=== PATIENT | female | born 1985 | race Caucasian/White ===

== ENCOUNTER 2018-09-25 06:28 | Inpatient (IN) ==
[2018-09-25] MEDS ORDERED: Aluminum/Magnesium/Simethacone Susp 30 ML UDC PO PRN (13:15)
[2018-09-25] MEDS ORDERED: Acetaminophen 325 MG Tablet PO PRN (13:15)
[2018-09-25] MEDS: Topiramate 100 MG Tablet PO SCH (21:10)
[2018-09-25] MEDS: OXcarbazepine 600 MG Tablet PO SCH (21:10)
[2018-09-25 23:26] VITALS: RESP 16
[2018-09-26] MEDS: OXcarbazepine 600 MG Tablet PO SCH (09:02)
[2018-09-26] MEDS: Topiramate 100 MG Tablet PO SCH ×2 (09:02→21:23)
[2018-09-26 11:10] LABS: Calcium 8.5 mg/dL (8.5-10.1); Potassium 3.7 meq/L (3.5-5.1)
[2018-09-26 11:13] LABS: Chol/HDL Ratio 3.03 Ratio; HDL Cholesterol 42.8 mg/dL (40.0-60.0)
--- NOTE | 2018-09-26 12:29 | P.HPPSY ---
Provisional Diagnosis Admission Date: September 25, 2018 09:45 Competence Certification of Person's Competence To Provide Express and Informed Consent I have personally examined Nicolle Solis, a person being served at [facility] on, September 26, 2018 1221. Express and informed consent means consent voluntarily given in writing, by a competent person, after sufficient explanation and disclosure of the subject matter involved to enable the person to make a knowing and willful decision without any element of force, fraud, deceit, duress, or other form of constraint or coercion. This person is 18 years of age or older, is not now known to be incompetent to consent to treatment with a guardian advocate, and does not have a health care surrogate or proxy currently making medical treatment decisions. I have found this person to be one of the following: [X] Competent to provide express and informed consent, as defined above, for voluntary admission to this facility and is competent to provide express and informed consent for treatment. He/she has the consistent capacity to make well reasoned, willful, and knowing decisions concerning his or her medical or mental health treatment. The person fully and consistently understands the purpose of the admission for examination/placement and is fully capable of personally exercising all rights assured under [place] Incompetent to provide express and informed consent to voluntary admission, and this is incompetent to provide express and informed consent to treatment. The person must be transferred to involuntary status and a petition for a guardian advocate filed with the Circuit Court. [] Refusing to provide express and informed consent to voluntary admission but is competent to provide express and informed consent for treatment. The person must be discharged or transferred to involuntary status. Form shall be completed within 24 hours of a person's arrival at the receiving facility and filed in the clinical record of each person: 1. Admitted on a voluntary basis 2. Permitted to provide express and informed consent to his/her own treatment 3. Allowed to transfer from involuntary to voluntary status 4. Prior to permitting a person to consent to his or her own treatment after having been previously found incompetent to consent to treatment. 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 Per nursing patient also had chest pain and she was medically cleared before being sent here. She is not complaining of any chest pain at this time. Patient is pleasant but is hesitant with a delayed thought process taking a long time to answer any questions. She was also overheard telling another patient by staff that being Jeffrey acted at the hospital will help her get disability. Per nursing patient got into an argument with the roommate. Patient becomes angry and denies this course of events and said she is here because she is too poor to by her daughter a Joel present. Mood has been depressed. Patient says she denies suicidal ideation intent or plan. Per Jeffrey act she had thoughts of cutting which she denies today. No signs of maru. She denies psychotic symptoms. Denies recent substance use Past psych: Patient says she is from [place] and goes to a mental health clinic [facility] are [facility]. She says her current medications are Zoloft 50 mg daily and trazodone 50 mg p.o. nightly. The pharmacy that she mentions to verify her doses is closed today. She is had 4 other inpatient admissions. One actual suicide attempt "a long time ago." Past medical: Patient has seizure disorder and says that her medications are Trileptal 900 mg in the morning and 1200 mg at night and Topamax 100 mg twice a day Past Famhx: Unsure Past Social: Patient was born in [place] and lives in [place]. Mother has legal custody of her only daughter. She is not . She lives with her roommates and is unemployed. She is on Medicaid and his food stamps. She does have a history of employment [employer] for 7 years in [place]. She denies any drug or alcohol use. She says she was in special education when she was little. Got all the way to the 11th grade. - Inpatient Certification I certify that the inpatient services were ordered in accordance with Medicare regulations governing the order. This includes certification that hospital inpatient services are reasonable and necessary and in the case of services not specified as inpatient-only under 42 CFR 419.22(n), that they are appropriately provided as inpatient services in accordance to with the 2-midnight benchmark under 43 CFR 412.3(e) I certify that inpatient psychiatric hospital services are medically necessary. Evaluation and treatment and/or diagnostic testing are expected to improve the patient's condition. The patient needs on a daily basis, active treatment furnished directly by or requiring the supervision of inpatient psychiatric facility personnel. PMFSH - History History Provided By: Patient - Tobacco History Second Hand Smoke Exposure: No Smoking Status: Never smoker - Alcohol History How Often Do You Have a Drink Containing Alcohol: Never - Substance Use History Substance History: No History of Abuse - Travel History Recent Travel in the USA Within the Last 8 Weeks: No Recent Travel Out of the Country Within the Last 8 Weeks: No - Immunization History Tetanus Immunization: >5 Years Hx Influenza Vaccine This Season: No Medications and Allergies Active Medications: Active Medications Acetaminophen (Tylenol) 650 mg PO Q4H PRN PRN Reason: Pain 1-5 or Temp >101F Al Hydrox/Mg Hydrox/Simethicone (Mag-Al Plus Susp Liq) 30 ml PO Q6H PRN PRN Reason: DYSPEPSIA Al Hydroxide/Mg Hydroxide (Milk Of Magnesia Liq) 30 ml PO DAILY PRN PRN Reason: CONSTIPATION Lorazepam (Ativan Inj) 2 mg IM Q15M PRN PRN Reason: SEIZURE DISORDER Oxcarbazepine (Trileptal) 600 mg PO BID [facility] Last Admin: 09/26/18 09:02 Dose: 600 mg Topiramate (Topamax) 100 mg PO BID [facility] Last Admin: 09/26/18 09:02 Dose: 100 mg Allergies Allergy/AdvReac Type Severity Reaction Status Date / Time No Known Allergies Allergy Verified 09/25/18 11:50 Results - Labs CBC & Chem 7: 09/26/18 09:27 Labs: Laboratory Results - last 24 hr 09/26/18 09:27 Sodium 141 Potassium 3.7 Chloride 109 H Carbon Dioxide 26.0 Anion Gap 6 BUN 13 Creatinine 0.74 Estimated GFR 89 Random Glucose 74 Calcium 8.5 Triglycerides 155 H Cholesterol 130 LDL Cholesterol, Calc 56 HDL Cholesterol 42.8 Cholesterol/HDL Ratio 3.03 Exam Vital signs: Vital Signs 09/25/18 23:24 09/26/18 06:00 Temperature 97.9 F 97.4 F L Pulse Rate 72 53 L Respiratory Rate 16 16 Blood Pressure 104/67 Pulse Oximetry 94 L Intake & Output 09/25/18 09/26/18 09/26/18 18:59 06:59 18:59 Weight 90.9 kg Other: Weight On Admission 90.9 kg Mental Status Examination Appearance: Disheveled Consciousness: Alert Orientation: x4 Motor Activity: Normal gait Speech: Hesitant, Slow Language: Adequate Fund of Knowledge: Inadequate Attention and Concentration: Adequate Memory: Impaired Mood: Sad Affect: Sad, Blunt Thought Process & Associations: Circumstantial Thought Content: Appropriate Hallucination Type: None Delusion Type: None Suicidal Ideation: No Suicidal Plan: No Suicidal Intention: No Homicidal Ideation: No Homicidal Plan: No Homicidal Intention: No Insight: Poor Judgment: Poor Assessment and Plan - Assessment (1) Major depressive disorder, recurrent, moderate Code(s): F33.1 - Major depressive disorder, recurrent, moderate Status: Acute (2) Seizure Code(s): R56.9 - Unspecified convulsions Status: Acute - Plan Plan: Patient may sign voluntary. We will increase Zoloft to 100 mg daily. Continue trazodone 50 mg nightly. We will continue her medications at current dosing and I suggest the provider tomorrow called the pharmacy to verify that dosing including her seizure medications. The dosing of the seizure medications were checked and are within range. Justification for Continued Inpatient Stay: Patient would decompensate in a less restrictive setting
[2018-09-26] MEDS: Sertraline 100 MG Tablet PO SCH (13:54)
[2018-09-26 14:19] LABS: Hemoglobin A1c 5.3 % (4.3-6.0)
--- NOTE | 2018-09-26 16:42 | P.CON ---
History of Present Illness Service: Hospitalist Consult date: 09/26/18 Requesting Physician: Ruddy Quiñones Reason for Consult: Assist with medical management Primary Care Provider: UNKNOWN History of Present Illness: This is a 33-year-old Jamaican female with past medical history significant for borderline intellectual function with hx of SPIKE MACHINE FEEDER shunt placement, seizure disorder, depression and anxiety admitted for suicidal ideation voluntarily to inpatient psychiatric unit. Hospitalist services have been consulted to assist with medical management. Patient states that her seizure disorder is well controlled on her current medication regimen and she has not had a seizure in many many years. She is complaining of a itchy rash on the right foot and ankle for the past few weeks. She denies any fever or chills. She denies any dizziness, lightheadedness or vision changes. Patient states she does have intermittent chest pain when she is fighting with her mother but denies any active chest pain at this time. She denies any ongoing chest pain or shortness of breath. She denies any nausea, vomiting or abdominal pain. She denies any bowel or bladder difficulties. Review of Systems All other systems reviewed negative except as stated in HPI PMFSH - History History Provided By: Patient - Medical History Medical History: Medical History (Last Updated 09/26/18 @ 16:32 by Marjan Haley) Anxiety Depression Intellectual disability Seizure disorder - Surgical History Surgical History: Surgical History (Last Updated 09/26/18 @ 16:32 by Marjan Haley) History of S/P SPIKE MACHINE FEEDER shunt - Family History Family History: Family History (Last Updated 09/26/18 @ 16:33 by Marjan Haley) Father Hypertension - Social History I have reviewed the patient's Social History: Yes - Tobacco History Second Hand Smoke Exposure: No Smoking Status: Never smoker - Alcohol History How Often Do You Have a Drink Containing Alcohol: Never - Substance Use History Substance History: No History of Abuse - Travel History Recent Travel in the USA Within the Last 8 Weeks: No Recent Travel Out of the Country Within the Last 8 Weeks: No - Immunization History Tetanus Immunization: >5 Years Hx Influenza Vaccine This Season: No Medications and Allergies Active Medications: Active Medications Acetaminophen (Tylenol) 650 mg PO Q4H PRN PRN Reason: Pain 1-5 or Temp >101F Al Hydrox/Mg Hydrox/Simethicone (Mag-Al Plus Susp Liq) 30 ml PO Q6H PRN PRN Reason: DYSPEPSIA Al Hydroxide/Mg Hydroxide (Milk Of Nazario Berrios) 30 ml PO DAILY PRN PRN Reason: CONSTIPATION Lorazepam (Ativan Inj) 2 mg IM Q15M PRN PRN Reason: SEIZURE DISORDER Oxcarbazepine (Trileptal) 900 mg PO DAILY [facility] Oxcarbazepine (Trileptal) 1,200 mg PO HS [facility] Sertraline HCl (Zoloft) 100 mg PO DAILY [facility] Last Admin: 09/26/18 13:54 Dose: 100 mg Topiramate (Topamax) 100 mg PO BID [facility] Last Admin: 09/26/18 09:02 Dose: 100 mg Trazodone HCl (Desyrel) 50 mg PO HS [facility] Allergies Allergy/AdvReac Type Severity Reaction Status Date / Time No Known Allergies Allergy Verified 09/25/18 11:50 Physical Exam Vital signs: Vital Signs 09/25/18 23:24 09/26/18 06:00 Temperature 97.9 F 97.4 F L Pulse Rate 72 53 L Respiratory Rate 16 16 Blood Pressure 104/67 Pulse Oximetry 94 L Intake & Output 09/25/18 09/26/18 09/26/18 18:59 06:59 18:59 Weight 90.9 kg Other: Weight On Admission 90.9 kg Narrative: GENERAL: This is a well-developed well-nourished overweight Jamaican female patient, in no acute distress. Awake and alert. SKIN: Warm and dry. + Fungal appearing rash on the right foot and ankle HEAD: Atraumatic. Normocephalic. EYES: Pupils equal and round. No scleral icterus. No injection or drainage. ENT: No nasal bleeding or discharge. Mucous membranes pink and moist. NECK: Trachea midline. CARDIOVASCULAR: Regular rate and rhythm. RESPIRATORY: No accessory muscle use. Clear to auscultation. Breath sounds equal bilaterally. GASTROINTESTINAL: Abdomen soft, non-tender, nondistended. No organomegaly. Bowel sounds positive. MUSCULOSKELETAL: Extremities without clubbing, cyanosis, or edema. No obvious deformities. NEUROLOGICAL: Awake and alert. No obvious cranial nerve deficits. Motor grossly within normal limits. Able to move all extremities spontaneously. Normal speech. PSYCHIATRIC: Calm and cooperative. Results - Labs CBC & Chem 7: 09/26/18 09:27 Labs: Laboratory Results - last 24 hr 09/26/18 09/26/18 09:27 09:27 Sodium 141 Potassium 3.7 Chloride 109 H Carbon Dioxide 26.0 Anion Gap 6 BUN 13 Creatinine 0.74 Estimated GFR 89 Random Glucose 74 Hemoglobin A1c 5.3 Calcium 8.5 Triglycerides 155 H Cholesterol 130 LDL Cholesterol, Calc 56 HDL Cholesterol 42.8 Cholesterol/HDL Ratio 3.03 Assessment and Plan - Plan 33-year-old Jamaican female with past medical history significant for borderline intellectual function with hx of SPIKE MACHINE FEEDER shunt placement, seizure disorder , depression and anxiety admitted for suicidal ideation voluntarily to inpatient psychiatric unit. Hospitalist services have been consulted to assist with medical management. Depression Anxiety Suicidal ideation -Management per psychiatric team Seizure disorder Patient denies any history of seizure activity in many years -Resume patient on home antiseizure medications Trileptal and Topamax -Seizure precautions Tinea pedis, right foot -Clotrimazole BID -monitor DVT prophylaxis -Patient is ambulatory Thank you very kindly for this consultation. We will continue to follow patient along with you. Discussed Condition With: patient, nursing staff
[2018-09-26] MEDS ORDERED: OXcarbazepine 600 MG Tablet PO SCH (21:00)
[2018-09-26] MEDS: Clotrimazole 1% Cream 15 GM Tube TOPICAL SCH (21:23)
[2018-09-26] MEDS: traZODone 50 MG Tablet PO SCH (21:23)
[2018-09-27] MEDS: Topiramate 100 MG Tablet PO SCH ×2 (09:15→20:17)
[2018-09-27] MEDS: Clotrimazole 1% Cream 15 GM Tube TOPICAL SCH ×2 (09:15→20:17)
[2018-09-27] MEDS: Sertraline 100 MG Tablet PO SCH (09:15)
--- NOTE | 2018-09-27 10:55 | P.PNPSY ---
Subjective Chief Complaint: SI Remarks: Nursing reports the patient has been calm and cooperative and appropriate within the milieu. Patient was observed during rec therapy to be somewhat isolated and quiet. Patient reports that she is confused and anxious about being at [facility] because she normally gets admitted to [facility]. Patient reports that her problems are due to a lack of support from her family and the lack of transportation. She is frustrated that she is unable to complete her GED and thereby get steady work. She last worked 8 years ago for [employer] in [place]. She reports that she lives for her 8-year-old daughter and a new boyfriend. Breast concerned that every time she has a new boyfriend her sister tells the boyfriend that he will be arrested because she is "mentally retarded". The patient denies any suicidal or homicidal ideations she denied any depressed mood but did endorse worries about the uncertainty of her future. She would like to be discharged back to [facility] for outpatient care and hopes that she can get more support transportation needs. Her Zoloft was increased from 50 mg 100 mg and she has thus far tolerated and she believes that it has helped her mood. Review of Systems Constitutional: Denies daytime sleepiness, Denies lack of energy Eyes: Denies change in vision Psychiatric: Reports anxiety, Denies hearing things others do not hear, Denies hopelessness, Denies seeing things others do not see, Denies thoughts of hurting /killing others, Denies thoughts of hurting/killing yourself Mental Status Examination Appearance: Disheveled Consciousness: Alert Orientation: x4 Motor Activity: Normal gait Speech: Unremarkable Language: Adequate Fund of Knowledge: Adequate Attention and Concentration: Adequate Memory: Unremarkable Mood: Anxious Affect: Appropriate Thought Process & Associations: Circumstantial Thought Content: Appropriate Hallucination Type: None Delusion Type: None Suicidal Ideation: No Suicidal Plan: No Suicidal Intention: No Homicidal Ideation: No Homicidal Plan: No Homicidal Intention: No Insight: Fair Judgment: Adequate (As evidenced by her reliable help seeking behaviors) Assessment and Plan - Assessment (1) Major depressive disorder, recurrent, moderate Code(s): F33.1 - Major depressive disorder, recurrent, moderate Status: Acute (2) Seizure Code(s): R56.9 - Unspecified convulsions Status: Acute - Plan Plan: Initial treatment plan: Patient may sign voluntary. We will increase Zoloft to 100 mg daily. Continue trazodone 50 mg nightly. We will continue her medications at current dosing and I suggest the provider tomorrow called the pharmacy to verify that dosing including her seizure medications. The dosing of the seizure medications were checked and are within range. September 27, 2018: Patient has had a good response to treatment as evidenced by her improved affect and reported remission of depressed mood. She is appropriately anxious about the uncertainty of her work status and her inability to find help with transportation. She indicates a willingness to follow up with [facility] which is her normal outpatient mental health provider. She has tolerated the change in dosing of her antidepressant and is she is satisfied with treatment. Plan: Continue current meds and inpatient treatment plan. Anticipate discharge home tomorrow with follow-up with [facility]. Justification for Continued Inpatient Stay: Patient remains an elevated risk of self-harm due to recurrent depression with a history of chronic seizures and only recently had an increase of her dosing and antidepressant. Request Healthcare Surrogate/Guardian Advocate?: No
[2018-09-27] MEDS: OXcarbazepine 600 MG Tablet PO SCH ×2 (11:05→20:17)
[2018-09-27] MEDS: traZODone 50 MG Tablet PO SCH (20:17)
[2018-09-28 05:45] VITALS: BP 108/65; PULSE 71; TEMP 98; O2SAT 99
[2018-09-28] MEDS ORDERED: OXcarbazepine 600 MG Tablet PO SCH (09:00)
[2018-09-28] MEDS: Topiramate 100 MG Tablet PO SCH (09:08)
[2018-09-28] MEDS: Sertraline 100 MG Tablet PO SCH (09:08)
[2018-09-28] MEDS: OXcarbazepine 600 MG Tablet PO SCH (09:08)
[2018-09-28] MEDS: Clotrimazole 1% Cream 15 GM Tube TOPICAL SCH (09:09)
--- NOTE | 2018-09-28 10:52 | P.DSPSY ---
Psychiatry Discharge Summary Inpatient Psychiatric care?: Yes Advance Directives: No Reason for Unknown:: Other Mental Health Advance Directive: No Health Care Proxy: No - Admission Admission Date: September 25, 2018 09:45 - Admission Diagnosis (1) Major depressive disorder, recurrent, moderate Code(s): F33.1 - Major depressive disorder, recurrent, moderate (2) Seizure Code(s): R56.9 - Unspecified convulsions Brief History: Patient is a 33-year-old [place] female with borderline intellectual functioning here for suicidal ideation. Per nursing patient also had chest pain and she was medically cleared before being sent here. She is not complaining of any chest pain at this time. Patient is pleasant but is hesitant with a delayed thought process taking a long time to answer any questions. She was also overheard telling another patient by staff that being Jeffrey acted at the hospital will help her get disability. Per nursing patient got into an argument with the roommate. Patient becomes angry and denies this course of events and said she is here because she is too poor to by her daughter a Vernon present. Mood has been depressed. Patient says she denies suicidal ideation intent or plan. Per Jeffrey act she had thoughts of cutting which she denies today. No signs of maru. She denies psychotic symptoms. Denies recent substance use Past psych: Patient says she is from [place] and goes to a mental health clinic they are called [facility]. She says her current medications are Zoloft 50 mg daily and trazodone 50 mg p.o. nightly. The pharmacy that she mentions to verify her doses is closed today. She is had 4 other inpatient admissions. One actual suicide attempt "a long time ago." Past medical: Patient has seizure disorder and says that her medications are Trileptal 900 mg in the morning and 1200 mg at night and Topamax 100 mg twice a day Past Famhx: Unsure Past Social: Patient was born in [place] and lives in [place]. Mother has legal custody of her only daughter. She is not . She lives with her roommates and is unemployed. She is on Medicaid and his food stamps. She does have a history of employment [employer] for 7 years in [place]. She denies any drug or alcohol use. She says she was in special education when she was little. Got all the way to the 11th grade. Tobacco Use In Past 30 Days: No How Often Do You Have a Drink Containing Alcohol: Never Hospital Course: Initial treatment plan: Patient may sign voluntary. We will increase Zoloft to 100 mg daily. Continue trazodone 50 mg nightly. We will continue her medications at current dosing and I suggest the provider tomorrow called the pharmacy to verify that dosing including her seizure medications. The dosing of the seizure medications were checked and are within range. September 27, 2018: Patient has had a good response to treatment as evidenced by her improved affect and reported remission of depressed mood. She is appropriately anxious about the uncertainty of her work status and her inability to find help with transportation. She indicates a willingness to follow up with [facility] which is her normal outpatient mental health provider. She has tolerated the change in dosing of her antidepressant and is she is satisfied with treatment. Plan: Continue current meds and inpatient treatment plan. Anticipate discharge home tomorrow with follow-up with [facility]. September 28, 2018: The patient was interviewed in the privacy of their room and accompanied by the assigned nurse. We reviewed the patient's mood, thoughts, and behaviors from overnight and this morning. The patient continues to deny depressed mood or anxiety. She denies suicidal ideations or thoughts of harming others. She expressed sincere motivation to return to her outpatient care with [facility] in [place]. She denied requests to involve her family in her discharge and safety planning. The patient has consistently denied thoughts of harm to self or others and her behavior has been appropriate on the unit therefore there is no evidence to support involuntary psychiatric treatment and the patient's request for discharge will be facilitated. - Discharge Discharge Date: 09/28/18 - Discharge Diagnosis (1) Major depressive disorder, recurrent, moderate Code(s): F33.1 - Major depressive disorder, recurrent, moderate Status: Acute (2) Seizure Code(s): R56.9 - Unspecified convulsions Status: Acute Discharge Disposition: Home - Discharge Instructions Discharge Diet: Regular Diet - Discharge Time > 30 minutes Mental Status Examination Appearance: Disheveled Consciousness: Alert Orientation: x4 Motor Activity: Normal gait Speech: Unremarkable Language: Adequate Fund of Knowledge: Adequate Attention and Concentration: Adequate Memory: Unremarkable Mood: Anxious Affect: Appropriate Thought Process & Associations: Circumstantial Thought Content: Appropriate Hallucination Type: None Delusion Type: None Suicidal Ideation: No Suicidal Plan: No Suicidal Intention: No Homicidal Ideation: No Homicidal Plan: No Homicidal Intention: No Insight: Fair Judgment: Adequate (As evidenced by her reliable help seeking behaviors) Discharge/Advance Care Plan - Results Vital Signs: Last Vital Signs Temp 98 F 09/28/18 05:43 Pulse 71 09/28/18 05:43 Resp 16 09/28/18 05:43 BP 108/65 09/28/18 05:43 Pulse Ox 99 09/28/18 05:43 Lab Results: Laboratory Results Hemoglobin A1c 5.3 % (4.3-6.0) 09/26/18 09:27 Triglycerides 155 mg/dL (42-150) H 09/26/18 09:27 Cholesterol 130 mg/dL (120-200) 09/26/18 09:27 LDL Cholesterol, Calc 56 mg/dL (0-99) 09/26/18 09:27 HDL Cholesterol 42.8 mg/dL (40.0-60.0) 09/26/18 09:27 Summary of Procedures: None performed Pending Results: None - Medications Number of antipsychotic medications at discharge: 0 - Discharge Care Plan Goals to Promote Your Health: * To prevent worsening of your condition and complications * To maintain your health at the optimal level Directions to Meet Your Goals: Take your medications as prescribed Follow your dietary instruction Follow activity as directed Keep your appointments as scheduled Take your immunizations and boosters as scheduled If your symptoms worsen call your PCP, if no PCP go to Urgent Care Center or Emergency Room For 18/05 questions related to your inpatient stay or results of tests pending at discharge, please contact Dr. Solo Lilly MD at Smoking is Dangerous to Your Health. Avoid second hand smoking
== END 2018-09-28 12:15 | disposition home or self-care (01) ==
LOC: H260 09:45
PROVIDERS: ADMIT Psychiatry & Neurology Psychiatry; ATTEND Psychiatry & Neurology Psychiatry